=== PATIENT | female | born 1945 | race Caucasian/White ===

== ENCOUNTER 2023-04-13 13:18 | Inpatient (IN) | payer OTHER ==
[~2023-04-13] VITALS: Ht 157.5 cm; Wt 73.3 kg
[2023-04-13 02:53] VITALS: BP 120/70
[2023-04-13 13:56] LABS: Basophils # (auto) 0.1 10 ^3/uL (0-0.2); Basophils % (auto) 0.9 % (0.0-2.0); Eosinophils # (auto) 0.1 10 ^3/uL (0-0.8); Eosinophils % (auto) 0.6 % (0.0-7.0); Hematocrit 39.1 % (36.0-46.0); Hemoglobin 13.9 g/dL (12.2-16.2); Lymphocytes # (auto) 0.9 10 ^3/uL (0.4-5.4); Lymphocytes % (auto) 10.3 % (10.0-50.0); Mean Corpuscular Hemoglobin 31.9 pg (28.0-32.0); Mean Corpuscular Hgb Conc. 35.6 g/dL (32.0-36.0); Mean Corpuscular Volume 89.4 fL (80.0-100.0); Monocytes # (auto) 0.5 10 ^3/uL (0-1.3); Monocytes % (auto) 5.9 % (0.0-12.0); Neutrophils # (auto) 7.4 10 ^3/uL (1.6-8.6); Neutrophils % (auto) 82.3 % (37.0-80.0); Nucleated Red Blood Cells % 0.1 %; Red Blood Cells 4.37 10^6/uL (4.0-5.20); Red Cell Distribution Width 13.9 % (11.8-14.3)
[2023-04-13 14:40] LABS: Calcium 9.3 mg/dL (8.5-10.1); Potassium 3.6 mmol/L (3.5-5.1)
[2023-04-13 14:43] LABS: Total Protein 7.2 g/dL (6.4-8.2)
[2023-04-13] MEDS ORDERED: SODIUM CHLORIDE 0.9% 500 ML IV ONE (15:00)
[2023-04-13] MEDS ORDERED: PIPERACILLIN-TAZOB 3.375GM 100 ML IV ONE (15:30)
[2023-04-13] MEDS ORDERED: MORPHINE SULFATE INJ 2 MG/ml SYRG IV ONE (15:30)
[2023-04-13] MEDS ORDERED: ONDANSETRON HCL 4 MG/2 ML VIAL IV ONE (15:30)
[2023-04-13] MEDS ORDERED: ONDANSETRON HCL 4 MG/2 ML VIAL IV PRN ×2 (16:15→21:45)
[2023-04-13 16:45] LABS: INR 1.1 (0.9-1.15)
[2023-04-13 16:51] LABS: Urine Bacteria FEW /hpf (None Seen); Urine Blood Negative /uL (Negative); Urine Specific Gravity 1.008 (1.001-1.035); Urine WBC <1 /hpf (0 - 5)
[2023-04-13] MEDS ORDERED: METOCLOPRAMIDE HCL 5MG/ml INJ 2ml VIAL IV PRN (18:15)
[2023-04-13] MEDS ORDERED: LIDOCAINE W/ EPINEPHRINE 1% 20ML VIAL ONE (18:57)
[2023-04-13] MEDS ORDERED: BUPIVACAINE 0.25% INJ 50ML VIAL ONE (18:57)
[2023-04-13] MEDS ORDERED: DexAMETHasone SOD PHOS 10MG/1ML VIAL INJ ONE (19:07)
[2023-04-13] MEDS ORDERED: ONDANSETRON HCL 4 MG/2 ML VIAL ONE (19:07)
[2023-04-13] MEDS ORDERED: ePHEDrine SULFATE 50 MG/ML AMP ONE (19:07)
[2023-04-13] MEDS ORDERED: MIDAZOLAM HCL 2MG/2ML 2ml VIAL (1mg/ml) ONE (19:07)
[2023-04-13] MEDS ORDERED: fentaNYL CITRATE 100 MCG/2 ML VL ONE (19:07)
[2023-04-13] MEDS ORDERED: PROPOFOL 10 MG/ML 20 ML IV ONE (19:07)
[2023-04-13] MEDS ORDERED: HYDROmorphone HCL 2 MG/ML VL/or syr ONE (19:07)
[2023-04-13] MEDS ORDERED: LIDOCAINE HCL 100 MG/5ML (2%) SYRG INJ IV ONE (19:07)
[2023-04-13] MEDS ORDERED: GLYCOPYRROLATE 0.2 MG/ML 1ML VIAL ONE (19:07)
[2023-04-13] MEDS ORDERED: KETOROLAC TROMETH 30 MG/ML 1ML VIAL ONE (19:07)
[2023-04-13] MEDS ORDERED: SUGAMMADEX 200mg/2ml Vial (100MG/ML) IV ONE (20:59)
[2023-04-13] MEDS ORDERED: HYDROmorphone HCL 2 MG/ML VL/or syr IV PRN (21:45)
[2023-04-13 22:00] VITALS: BP 120/70
[2023-04-13] MEDS: SODIUM CHLORIDE 0.9% 1,000 ML IV SCH (22:49)
[2023-04-13] MEDS: PIPERACILLIN-TAZOB 3.375GM 100 ML IV SCH (22:49)
[2023-04-13 22:53] VITALS: BP 120/70
[2023-04-14] MEDS: SODIUM CHLORIDE 0.9% 1,000 ML IV SCH ×3 (00:35→17:15)
[2023-04-14] MEDS ORDERED: ATOR-47 PO (04:25)
[2023-04-14] MEDS ORDERED: SERT-160 PO (04:25)
[2023-04-14 05:00] VITALS: BP 110/56
[2023-04-14] MEDS: PIPERACILLIN-TAZOB 3.375GM 100 ML IV SCH ×4 (05:18→22:27)
[2023-04-14 05:41] LABS: Basophils # (auto) 0 10 ^3/uL (0-0.2); Basophils % (auto) 0.1 % (0.0-2.0); Eosinophils # (auto) 0 10 ^3/uL (0-0.8); Hematocrit 37.1 % (36.0-46.0); Hemoglobin 13.2 g/dL (12.2-16.2); Lymphocytes # (auto) 0.6 10 ^3/uL (0.4-5.4); Lymphocytes % (auto) 5.2 % (10.0-50.0); Mean Corpuscular Hemoglobin 32.2 pg (28.0-32.0); Mean Corpuscular Hgb Conc. 35.5 g/dL (32.0-36.0); Mean Corpuscular Volume 90.5 fL (80.0-100.0); Monocytes # (auto) 0.3 10 ^3/uL (0-1.3); Neutrophils # (auto) 10.2 10 ^3/uL (1.6-8.6); Neutrophils % (auto) 91.7 % (37.0-80.0); Nucleated Red Blood Cells % 0.5 %; White Blood Cell 11.1 10^3/uL (4.4-10.8)
[2023-04-14 06:00] LABS: Potassium 3.7 mmol/L (3.5-5.1)
[2023-04-14 06:10] LABS: Albumin 3.3 g/dL (3.4-5.0); BUN/Creatinine Ratio 12.3 (10.0-20.0); Bilirubin, Total 1.3 mg/dL (0.2-1.0); Calcium 8.3 mg/dL (8.5-10.1); Total Protein 6.6 g/dL (6.4-8.2)
[2023-04-14] MEDS: MORPHINE SULFATE INJ 2 MG/ml SYRG IV PRN ×2 (08:43→22:27)
[2023-04-14 09:00] VITALS: BP 111/93
[2023-04-14] MEDS: PANTOPRAZOLE 40 MG/10 ML VIAL INJ IV SCH (11:22)
[2023-04-14 13:00] VITALS: BP 117/57
[2023-04-14 17:00] VITALS: BP 122/70
[2023-04-14 22:00] VITALS: BP 131/67
[2023-04-15 05:00] VITALS: BP 128/65
[2023-04-15] MEDS: SODIUM CHLORIDE 0.9% 1,000 ML IV SCH ×3 (05:00→18:15)
[2023-04-15] MEDS: PIPERACILLIN-TAZOB 3.375GM 100 ML IV SCH ×3 (05:00→18:33)
[2023-04-15 05:14] LABS: Basophils # (auto) 0 10 ^3/uL (0-0.2); Basophils % (auto) 0.1 % (0.0-2.0); Eosinophils # (auto) 0 10 ^3/uL (0-0.8); Hematocrit 32.6 % (36.0-46.0); Hemoglobin 11.5 g/dL (12.2-16.2); Lymphocytes # (auto) 1.3 10 ^3/uL (0.4-5.4); Lymphocytes % (auto) 12.9 % (10.0-50.0); Mean Corpuscular Hgb Conc. 35.3 g/dL (32.0-36.0); Mean Corpuscular Volume 90.5 fL (80.0-100.0); Monocytes # (auto) 0.7 10 ^3/uL (0-1.3); Monocytes % (auto) 6.5 % (0.0-12.0); Neutrophils # (auto) 8.3 10 ^3/uL (1.6-8.6); Neutrophils % (auto) 80.5 % (37.0-80.0); Red Cell Distribution Width 14.3 % (11.8-14.3); White Blood Cell 10.4 10^3/uL (4.4-10.8)
[2023-04-15 05:35] LABS: Potassium 4.2 mmol/L (3.5-5.1)
[2023-04-15 05:40] LABS: BUN/Creatinine Ratio 23.6 (10.0-20.0); Calcium 8.8 mg/dL (8.5-10.1); Magnesium 2.1 mg/dL (1.6-2.6)
[2023-04-15 09:13] VITALS: BP 124/50
[2023-04-15] MEDS: PANTOPRAZOLE 40 MG/10 ML VIAL INJ IV SCH (10:28)
[2023-04-15 12:39] VITALS: BP 132/69
[2023-04-15 16:38] VITALS: BP 120/75
[2023-04-15 22:00] VITALS: BP 150/76
[2023-04-16] MEDS: PIPERACILLIN-TAZOB 3.375GM 100 ML IV SCH ×2 (00:38→06:08)
[2023-04-16] MEDS: SODIUM CHLORIDE 0.9% 1,000 ML IV SCH ×2 (02:35→10:55)
[2023-04-16 05:00] VITALS: BP 138/70
[2023-04-16 06:03] LABS: BUN/Creatinine Ratio 15.9 (10.0-20.0); Calcium 9.1 mg/dL (8.5-10.1); Potassium 3.5 mmol/L (3.5-5.1)
[2023-04-16 09:00] VITALS: BP 148/74
[2023-04-16] MEDS ORDERED: AUG875T PO (11:45)
[2023-04-16] MEDS ORDERED: ACE3T PO (11:45)
== END 2023-04-16 13:00 | disposition home or self-care (01) | DRG 330 ==
LOC: EDBD 13:18 → ER 13:18 → OVERFLOW 16:15 → WEST WING 18:28
PROVIDERS: ADMIT Nurse Practitioner Family; ATTEND Internal Medicine Geriatric Medicine
PROC: 0DBH4ZZ Excision of Cecum, Percutaneous Endoscopic Approach (ICD-10-PCS; 2023-04-13)
PROC: 0DNW4ZZ Release Peritoneum, Percutaneous Endoscopic Approach (ICD-10-PCS; 2023-04-13)
PROC: 0DTJ4ZZ Resection of Appendix, Percutaneous Endoscopic Approach (ICD-10-PCS; principal; 2023-04-13 19:57)
DX: K35.80 Unspecified acute appendicitis (principal); E44.1 Mild protein-calorie malnutrition; K66.0 Peritoneal adhesions (postprocedural) (postinfection); E78.5 Hyperlipidemia, unspecified; F32.A Depression, unspecified; Z68.29 Body mass index [BMI] 29.0-29.9, adult; Z86.73 Personal history of transient ischemic attack (TIA), and cerebral infarction without residual deficits
CPT/HCPCS: 36415; 71045; 74176; 80048; 80053; 81001; 83690; 83735; 84484; 85025; 85610; 93005; 96361; 96365; 97116; 97163; 97530; C9113; G0378; J1100; J1885; J2250; J2405; J2543; J2704; J3490

== ENCOUNTER → 2024-01-14 | Outpatient (CLI) | payer BC ==
[~2024-01-14] MED LIST: ACE3T PO; ATOR-47 PO; AUG875T PO; SERT-160 PO
[2024-01-14 10:38] LABS: Basophils # (auto) 0.1 10 ^3/uL (0-0.2); Basophils % (auto) 1.1 % (0.0-2.0); Eosinophils # (auto) 0.2 10 ^3/uL (0-0.8); Eosinophils % (auto) 3.5 % (0.0-7.0); Hematocrit 41.5 % (36.0-46.0); Hemoglobin 14.1 g/dL (12.2-16.2); Lymphocytes # (auto) 1.8 10 ^3/uL (0.4-5.4); Mean Corpuscular Hemoglobin 30.7 pg (28.0-32.0); Mean Corpuscular Volume 90.2 fL (80.0-100.0); Monocytes # (auto) 0.3 10 ^3/uL (0-1.3); Monocytes % (auto) 6.6 % (0.0-12.0); Neutrophils # (auto) 2.7 10 ^3/uL (1.6-8.6); Neutrophils % (auto) 53.8 % (37.0-80.0); Nucleated Red Blood Cells % 0.1 %; Red Blood Cells 4.59 10^6/uL (4.0-5.20); Red Cell Distribution Width 14.7 % (11.8-14.3)
[2024-01-14 11:11] LABS: Urine Bacteria NONE SEEN /hpf (None Seen); Urine Blood Negative /uL (Negative); Urine Clarity Clear (Clear); Urine Color Yellow (Yellow); Urine Protein, UAD Negative (Negative); Urine Specific Gravity 1.017 (1.001-1.035); Urine Urobilinogen Normal (Negative); Urine WBC 5 /hpf (0 - 5); Urine pH 7.5 (5.0-8.0)
[2024-01-14 11:31] LABS: Alanine Aminotransferase 42 U/L (7-40); Albumin 4.5 g/dL (3.2-4.8); Alkaline Phosphatase 60 U/L (46-116); Anion Gap 5 (5-15); Aspartate Aminotransferase 33 U/L (13-40); BUN/Creatinine Ratio 11.5 (10.0-20.0); Bilirubin, Total 0.9 mg/dL (0.2-1.0); Blood Urea Nitrogen 10 mg/dL (9-23); Calcium 10.4 mg/dL (8.5-10.1); Carbon Dioxide 29 mmol/L (20-30); Chloride 108 mmol/L (98-107); Cholesterol 201 mg/dL (< 200); Glucose 106 mg/dL (74-106); HDL Cholesterol 40 mg/dL (40-59); LDL Cholesterol 133 mg/dL (< 100); Potassium 4.8 mmol/L (3.5-5.1); Sodium 142 mmol/L (136-145); Total Protein 7.2 g/dL (5.7-8.2); Triglycerides 177 mg/dL (< 150)
[2024-01-14 11:35] LABS: Folate (Folic Acid) > 24.00 ng/mL (>5.38)
[2024-01-14 12:12] LABS: Uric Acid 4.9 mg/dL (3.1-7.8)
== END | disposition home or self-care (01) ==
LOC: LAB 10:22
PROVIDERS: ATTEND Internal Medicine
DX: E61.2 Magnesium deficiency (principal); R78.89 Finding of other specified substances, not normally found in blood; E78.9 Disorder of lipoprotein metabolism, unspecified; R68.89 Other general symptoms and signs; R94.6 Abnormal results of thyroid function studies; E79.0 Hyperuricemia without signs of inflammatory arthritis and tophaceous disease; R82.991 Hypocitraturia; R82.90 Unspecified abnormal findings in urine; R82.79 Other abnormal findings on microbiological examination of urine; E85.9 Amyloidosis, unspecified; D51.9 Vitamin B12 deficiency anemia, unspecified; Z79.899 Other long term (current) drug therapy
CPT/HCPCS: 36415; 80053; 80061; 81001; 82306; 82607; 82746; 83036; 83735; 84443; 84550; 85025; 87086